=== PATIENT | male | born 1970 | race Caucasian/White ===

== ENCOUNTER → 2020-07-28 | Outpatient (CLI) | payer OTHER ==
[2020-07-28 17:02] LABS: HEMOGLOBIN 17.3 gm/dl (14.0-17.5); RED BLOOD COUNT 5.32 M/UL (4.20-5.50); WHITE BLOOD COUNT 10.3 K/UL (4.5-11.0)
[2020-07-28 17:54] LABS: BUN/CREATININE RATIO 17 (0-10)
[2020-07-30 06:44] LABS: CREATININE, URINE 67.8 mg/dL (Not Estab.); MICROALB/CREAT RATIO <4 (0-29)
[2020-08-01 08:14] LABS: VITAMIN D, 25-HYDROXY 21.1 ng/mL (30.0-100.0)
[2020-08-05 19:10] LABS: TESTOSTERONE, SERUM 142 ng/dL (264-916)
== END ==
LOC: LAB 16:06
PROVIDERS: Nurse Practitioner Family
DX: Z00.00 Encounter for general adult medical examination without abnormal findings (principal); E11.9 Type 2 diabetes mellitus without complications; M25.50 Pain in unspecified joint; M54.5 Low back pain; G89.29 Other chronic pain; E78.5 Hyperlipidemia, unspecified; G43.909 Migraine, unspecified, not intractable, without status migrainosus; R53.83 Other fatigue; E53.8 Deficiency of other specified B group vitamins; E55.9 Vitamin D deficiency, unspecified; E29.1 Testicular hypofunction
CPT/HCPCS: 80053; 80061; 82043; 82570; 82607; 83036; 84402; 84403; 84439; 84443; 85025

== ENCOUNTER → 2020-10-26 | Outpatient (CLI) | payer OTHER ==
[2020-10-26 18:57] LABS: HEMOGLOBIN 17.8 gm/dl (14.0-17.5); RED BLOOD COUNT 5.33 M/UL (4.20-5.50)
[2020-10-26 19:45] LABS: BUN/CREATININE RATIO 16 (0-10)
[2020-10-28 09:13] LABS: CREATININE, URINE 123.5 mg/dL (Not Estab.)
== END ==
LOC: LAB 18:07
PROVIDERS: Nurse Practitioner Family
DX: Z12.5 Encounter for screening for malignant neoplasm of prostate (principal); Z00.00 Encounter for general adult medical examination without abnormal findings; F41.8 Other specified anxiety disorders; E11.65 Type 2 diabetes mellitus with hyperglycemia; I10 Essential (primary) hypertension; M54.5 Low back pain; N40.1 Benign prostatic hyperplasia with lower urinary tract symptoms; E78.5 Hyperlipidemia, unspecified; R53.83 Other fatigue; E53.8 Deficiency of other specified B group vitamins
CPT/HCPCS: 36415; 80053; 80061; 82043; 82570; 82607; 83036; 84439; 84443; 85025; G0103

== ENCOUNTER → 2021-01-02 | Outpatient (CLI) | payer OTHER | LOC: EXRD 09:26 | DX: R10.9 Unspecified abdominal pain (principal); Z11.2 Encounter for screening for other bacterial diseases; R19.7 Diarrhea, unspecified; K76.0 Fatty (change of) liver, not elsewhere classified | CPT/HCPCS: 76705 ==